=== PATIENT | female | born 1975 | race African-American/Black ===

== ENCOUNTER 2021-12-09 12:01 | Emergency (ER) | payer MEDICARE, OTHER ==
[~2021-12-09] VITALS: Ht 165.1 cm; Wt 82.1 kg
--- NOTE | 2021-12-09 12:01 | NUR ---
PT BIB SELF C/O SI "I WANT TO RUN THRU TRAFFIC" PT IS AAOX4, NOT IN RESPIRATORY DISTRESS, V/S STABLE, KEPT RESTED AND COMFORTABLE. WILL CONTINUE TO MONITOR.
--- NOTE | 2021-12-09 12:09 | NUR ---
AT BEDSIDE FOR EVAL.
--- NOTE | 2021-12-09 12:15 | NUR ---
URINE SPECIMEN COLLECTED AND SENT TO LAB.
--- NOTE | 2021-12-09 13:25 | NUR ---
COVID SWAB DONE AND SENT TO LAB
[2021-12-09 14:30] LABS: BILIRUBIN,URINE NEGATIVE (NEGATIVE); COLOR,URINE YELLOW (YELLOW); LEUKOCYTE ESTERASE ,URINE NEGATIVE (NEGATIVE); NITRITE, URINE NEGATIVE (NEGATIVE); PH,URINE 8.5 (5.0-8.0); PROTEIN,URINE NEGATIVE (NEGATIVE); UGLUCOSE NEGATIVE (NEGATIVE); UROBILINOGEN,URINE 0.2 EU/dL (0.2)
[2021-12-09 15:40] LABS: BASOPHILS # (AUTO) 0.1 K/uL (0.0-0.2); BASOPHILS % (AUTO) 1.4 % (0.0-2.0); EOSINOPHILS % (AUTO) 7.2 % (0.0-6.0); HEMATOCRIT 31 % (33-45); HEMOGLOBIN 9.9 g/dL (11.5-14.8); LYMPHOCYTES # (AUTO) 3.6 K/uL (0.8-4.8); LYMPHOCYTES % (AUTO) 44.6 % (20.0-44.0); MEAN CORPUSCULAR HGB CONC 32 g/dl (31.0-36.0); MEAN CORPUSCULAR VOLUME 82 fL (82-100); MONOCYTES # (AUTO) 0.9 K/uL (0.1-1.30); MONOCYTES % (AUTO) 10.5 % (2.0-12.0); NEUTROPHILS # (AUTO) 2.9 K/uL (1.8-8.9); NEUTROPHILS % (AUTO) 36.3 % (43.0-81.0); PLATELET COUNT (AUTO) 301 K/uL (150-450); RED BLOOD CELL COUNT(AUTO) 3.82 MIL/uL (4.0-5.2); WHITE BLOOD COUNT (AUTO) 8.1 K/uL (4.3-11.0)
[2021-12-09 15:56] LABS: ACETAMINOPHEN 3 ug/ml (10-30); ALANINE AMINOTRANSFERASE 77 U/L (12-78); ALBUMIN 3.4 g/dL (3.4-5.0); ALCOHOL, BLOOD < 3 mg/dL (0-0); ALKALINE PHOSPHATASE 68 U/L (46-116); ASPARTATE AMINOTRANSFERASE 31 U/L (15-37); BILIRUBIN,DIRECT 0.1 mg/dL (0.0-0.2); BILIRUBIN,TOTAL 0.1 mg/dL (0.2-1.0); CALCIUM, SERUM 8.8 mg/dL (8.5-10.1); CARBON DIOXIDE 30 mmol/L (21-32); CHLORIDE 103 mmol/L (98-107); CREATININE 0.7 mg/dL (0.6-1.3); GLUCOSE 84 mg/dL (74-106); POTASSIUM 4.2 mmol/L (3.5-5.1); SODIUM SERUM 137 mmol/L (136-145); TOTAL PROTEIN, SERUM 7.4 g/dL (6.4-8.2); UREA NITROGEN, BLOOD 16 mg/dL (7-18)
[2021-12-09 17:38] VITALS: BP 106/71
--- NOTE | 2021-12-09 18:00 | NUR ---
Dinner served- Ate 100%
--- NOTE | 2021-12-09 18:22 | NUR ---
FAXED CLINICALS TO [facility] INTAKE.
--- NOTE | 2021-12-09 18:35 | NUR ---
Karissa- [facility] called and accepted patient. Waiting for transport
--- NOTE | 2021-12-09 18:37 | NUR ---
PT ACCEPTED TO [facility] UNDER DR. ZABALA PLEASE CALL [phone] FOR REPORT. [facility] WILL ARRANGE TRANSPORT PER ART.
--- NOTE | 2021-12-09 19:12 | NUR ---
Hema Shukla from [facility] here to picker and sorter load and unload clients for transport. Hand off to RN Complex Human Resources Manager- Karissa
--- NOTE | 2021-12-09 19:13 | NUR ---
PICKED UP BY MATTHEW CASTELAN IN STABLE CONDITION
== END 2021-12-09 19:14 ==
LOC: ER 12:03
DX: F31.9 Bipolar disorder, unspecified (principal); F20.9 Schizophrenia, unspecified; Z88.0 Allergy status to penicillin; Z88.2 Allergy status to sulfonamides; Z88.8 Allergy status to other drugs, medicaments and biological substances; Z20.822 Contact with and (suspected) exposure to COVID-19
CPT/HCPCS: 36415; 80048-TC; 80076-TC; 84703-TC; 85025-TC; C9803; G0480

== ENCOUNTER 2022-09-23 12:42 | Emergency (ER) | payer MEDICARE, OTHER ==
[~2022-09-23] VITALS: Ht 165.1 cm; Wt 95.3 kg
[2022-09-23 13:04] VITALS: BP 110/69
--- NOTE | 2022-09-23 15:32 | NUR ---
BY PT NO LONGER AT HOLDING ROOM. LEFT WITHOUT BEING SEEN. EKG WAS DONE WHEN PATIENT CHECKED IN, NORMAL SINUS RHYTHM. DR HAILE AWARE FOR PATIENT TO RETURN TO WAITING ROOM AWAITING ED BED AVAILABILITY.
== END 2022-09-23 15:38 | disposition left against medical advice (07) ==
LOC: ER 12:47
DX: Z53.21 Procedure and treatment not carried out due to patient leaving prior to being seen by health care provider (principal)

== ENCOUNTER 2022-09-23 16:28 | Emergency (ER) | payer MEDICARE, OTHER ==
[~2022-09-23] VITALS: Ht 165.1 cm; Wt 95.3 kg
--- NOTE | 2022-09-23 19:04 | NUR ---
[facility]IDLINE NURSE REQUESTED, NURSING SUP CALLED
--- NOTE | 2022-09-23 19:39 | NUR ---
PATIENT REFUSING IV LINE RISK AND BENEFITS HAVE BEEN EXPLAINED X 2
[2022-09-23 19:40] VITALS: BP 128/74
--- NOTE | 2022-09-23 20:24 | NUR ---
Patient does not wish to proceed with medical care recommended by Dr. Newsome. Patient given information related to possible complications, up to and including , which could occur as a result of leaving the hospital at this time. Patient verbalizes understanding of risks involved due to leaving against medical advice. Patient has signed AMA form.
== END 2022-09-23 20:35 | disposition left against medical advice (07) ==
LOC: ER 16:28
DX: R00.2 Palpitations (principal); F20.9 Schizophrenia, unspecified; F39 Unspecified mood [affective] disorder; F31.9 Bipolar disorder, unspecified; F17.200 Nicotine dependence, unspecified, uncomplicated; Z88.0 Allergy status to penicillin; Z88.8 Allergy status to other drugs, medicaments and biological substances; Z60.2 Problems related to living alone
CPT/HCPCS: 71045-TC